=== PATIENT | female | born 1985 | race Asian ===

== ENCOUNTER 2022-05-22 15:28 | Emergency (ER) | payer OTHER | END 2022-05-22 16:24 | disposition home or self-care (01) | LOC: EDBD 15:28 → ERS 15:28 | DX: R51.9 Headache, unspecified (principal); M79.10 Myalgia, unspecified site; V59.50XA Passenger in pick-up truck or van injured in collision with unspecified motor vehicles in traffic accident, initial encounter | CPT/HCPCS: 99283 ==